=== PATIENT | male | born 1990 | race African-American/Black ===

== ENCOUNTER 2023-09-28 13:21 | Emergency (ER) | payer MEDICAID ==
[~2023-09-28] VITALS: Ht 190.5 cm; Wt 90.7 kg
[2023-09-28 15:03] LABS: BASOPHILS % (AUTO) 0.1 % (0.0-2.0); EOSINOPHILS # (AUTO) 0.1 K/uL (0.0-0.7); HEMATOCRIT 35 % (39-51); HEMOGLOBIN 11.8 g/dL (13.5-17.5); LYMPHOCYTES # (AUTO) 1.7 K/uL (0.8-4.8); LYMPHOCYTES % (AUTO) 58.5 % (20.0-44.0); MEAN CORPUSCULAR HEMOGLOBIN 34 PG (26.0-33.0); MEAN CORPUSCULAR HGB CONC 34 g/dl (31.0-36.0); MEAN CORPUSCULAR VOLUME 98 fL (80-96); MONOCYTES # (AUTO) 0.1 K/uL (0.1-1.30); MONOCYTES % (AUTO) 4.5 % (2.0-12.0); NEUTROPHILS % (AUTO) 34.9 % (43.0-81.0); PLATELET COUNT (AUTO) 221 K/uL (150-450); RED BLOOD CELL COUNT(AUTO) 3.53 MIL/uL (4.5-6.0); RED CELL DISTRIBUTION WIDTH 17.5 % (11.5-15.0)
[2023-09-28 15:13] LABS: CALCIUM, SERUM 8.8 mg/dL (8.5-10.1); CARBON DIOXIDE 28 mmol/L (21-32); CHLORIDE 104 mmol/L (98-107); CREATININE 0.7 mg/dL (0.6-1.3); GLUCOSE 199 mg/dL (74-106); POTASSIUM 4.1 mmol/L (3.5-5.1); SODIUM SERUM 140 mmol/L (136-145); UREA NITROGEN, BLOOD 16 mg/dL (7-18)
[2023-09-28] MEDS ORDERED: LORAZEPAM 0.5 MG TABLET ONE (15:14)
[2023-09-28] MEDS: LORAZEPAM 1 MG TABLET PO ONE (15:14)
[2023-09-28 16:39] VITALS: BP 142/92; TEMP 98.6; O2SAT 100
[2023-09-28 16:51] LABS: EOSINOPHILS % (MANUAL) 1 % (0-4); LYMPHOCYTES % (MANUAL) 59 % (16-48); MONOCYTES % (MANUAL) 6 % (0-11.0); NEUTROPHILS % (MANUAL) 34 (42-76); PLATELET ESTIMATE ADEQUATE
== END 2023-09-28 16:56 | disposition home or self-care (01) ==
LOC: ER 13:24
DX: R06.02 Shortness of breath (principal); F41.9 Anxiety disorder, unspecified; R07.9 Chest pain, unspecified; R73.9 Hyperglycemia, unspecified; Z60.2 Problems related to living alone
CPT/HCPCS: 36415; 36600; 71045-TC; 80048-TC; 82803-TC; 84484-TC; 85025-TC